=== PATIENT | female | born 1965 | race Two or more races ===

== ENCOUNTER 2017-12-28 13:14 | Emergency (ER) | payer OTHER ==
[~2017-12-28] VITALS: Ht 160 cm; Wt 63.2 kg
[~2017-12-28 13:14] MED LIST: FIORICET 50-301 EACH PO; FLEXERIL5 MG PO; PERCOCET 5/31 TABLET PO; TYLENOL EXTRA500 MG PO
[2017-12-28 14:40] LABS: BASOPHIL (%) 0.5 % (0-1); EOSINOPHIL (%) 0.5 % (0-5); HEMATOCRIT 40.7 % (36.0-46.0); HEMOGLOBIN 13.8 G/DL (11.9-15.5); IMMATURE GRANULOCYTE (%) 0.4 % (0.0-0.7); LYMPHOCYTE (%) 30.7 % (15-42); LYMPHOCYTE COUNT 1.7 K/uL (1.0-2.8); MCH 29.2 PG (29.0-34.0); MCHC 33.9 G/DL (30.0-36.0); MONOCYTE (%) 4.9 % (3-12); MONOCYTE COUNT 0.3 K/uL (0-0.8); NEUTROPHIL COUNT 3.6 K/uL (1.8-6.4); PLATELET COUNT 192 K/uL (156-360); RBC DIS.WIDTH-CV 13.1 % (11.8-14.6); RED BLOOD COUNT 4.73 M/uL (3.80-5.20); WHITE BLOOD COUNT 5.7 K/uL (4.1-10.2)
[2017-12-28 14:48] LABS: ALBUMIN 4.6 g/dL (3.2-4.8); CHLORIDE 108 mEq/L (99-109); POTASSIUM 4.1 mEq/L (3.7-5.4); SODIUM 141 mEq/L (136-147)
[2017-12-28 14:50] LABS: GLUCOSE 123 mg/dL (70-99)
[2017-12-28 14:51] LABS: TOTAL PROTEIN 7.8 g/dL (6.4-8.3)
[2017-12-28 14:52] LABS: TOTAL BILIRUBIN 0.6 mg/dL (0.0-1.0)
[2017-12-28 14:54] LABS: ALKALINE PHOSPHATASE 87 IU/L (3-129); GFR ESTIMATE (CALCULATED) > 59 mL/min/
[2017-12-28 14:55] LABS: UREA NITROGEN (BUN) 9 mg/dL (9-23)
[2017-12-28 14:56] LABS: AST (GOT) 25 IU/L (2-34)
[2017-12-28 14:57] LABS: ALT (GPT) 18 IU/L (3-49)
[2017-12-28 14:58] LABS: LIPASE 17 U/L (1.0-51.0)
[2017-12-28] MEDS ORDERED: ZOFRAN4 MG PO (17:14)
[2017-12-28 17:32] VITALS: BP 156/95
== END 2017-12-28 17:33 | disposition home or self-care (01) ==
LOC: EME 13:14
PROVIDERS: Emergency Medicine
DX: R10.12 Left upper quadrant pain (principal); G20 Parkinson's disease; E78.5 Hyperlipidemia, unspecified; Z90.710 Acquired absence of both cervix and uterus; Z88.5 Allergy status to narcotic agent; Z88.8 Allergy status to other drugs, medicaments and biological substances
CPT/HCPCS: 71275; 74177; 80053; 83690; 85025; 93005; 99281; 99284; J3010; J7030